=== PATIENT | male | born 1935 | race African-American/Black ===

== ENCOUNTER 2017-02-22 17:02 | Emergency (ER) | payer OTHER, MEDICARE ==
[~2017-02-22] VITALS: Ht 182.9 cm; Wt 81.6 kg
[2017-02-22] MEDS ORDERED: ONDANSETRON 4 MG/2 ML VIAL ONE (17:53)
[2017-02-22] MEDS ORDERED: NEOMY/BACITRA/POLYMYXIN B OINT UD PACKET TP ONE ×2 (19:00→19:14)
[2017-02-22] MEDS ORDERED: TDAP DIPH,PERTUSS,TET VAC/PF 0.5 ML DISP.SYRIN IM ONE ×2 (19:00→19:14)
--- NOTE | 2017-02-22 20:15 | NUR ---
Patient discharged to home in stable conditon with taking patient home. Written and verbal after care instructions given. Patient verbalizes understanding of instructions. Walked out of ER with steady gait.
[2017-02-22 20:17] VITALS: BP 125/85
== END 2017-02-22 20:18 | disposition home or self-care (01) ==
LOC: ER 17:04
DX: S61.301A Unspecified open wound of left index finger with damage to nail, initial encounter (principal); G20 Parkinson's disease; W27.8XXA Contact with other nonpowered hand tool, initial encounter; Y93.89 Activity, other specified; Y92.89 Other specified places as the place of occurrence of the external cause; Y99.8 Other external cause status
CPT/HCPCS: 90471; 90715; 99283; A4217; A4663; J7030; J2405

== ENCOUNTER 2018-08-01 08:22 | Inpatient (IN) | payer OTHER, MEDICARE ==
[~2018-08-01] VITALS: Ht 180.3 cm; Wt 79.9 kg
--- NOTE | 2018-08-01 08:37 | NUR ---
PT IS IN ROOM #1B. DR SEVILLA EVALUATED THE PT. CODE STROKE WAS CALLED BY DR SEVILLA. CODE STROKE PROTOKOL STARTED.
[2018-08-01] MEDS ORDERED: IV NORMAL SALINE 250 ML IV ONE (08:56)
[2018-08-01] MEDS ORDERED: diphenhydrAMINE 50 MG/1 ML VIAL ONE (08:56)
[2018-08-01] MEDS ORDERED: IOHEXOL 350 100 ML INFUS..BTL ONE (08:56)
[2018-08-01] MEDS ORDERED: SWABABLE VALVE TRANSFER SET EA MC ONE (08:56)
[2018-08-01] MEDS ORDERED: FINA5TAB11 PO (08:57)
[2018-08-01] MEDS ORDERED: CYAN100T3 PO (08:57)
[2018-08-01] MEDS ORDERED: TAMS-3 PO (08:57)
[2018-08-01] MEDS ORDERED: VALP250S3 PO ×2 (08:57)
[2018-08-01] MEDS ORDERED: CARI1.5C PO (08:57)
[2018-08-01] MEDS ORDERED: ASPI81TA44 PO (08:57)
[2018-08-01] MEDS ORDERED: diphenhydrAMINE 50 MG/1 ML VIAL IV ONE (09:00)
--- NOTE | 2018-08-01 09:12 | NUR ---
PT IS RESTING IN BED COMFORTABLY. PT'S AT THE BEDSIDE. CONTINUE TO MONITOR THE PT.
[2018-08-01 09:22] LABS: BASOPHILS % (AUTO) 0.7 % (0.0-2.0); EOSINOPHILS # (AUTO) 0.1 K/uL (0.0-0.7); EOSINOPHILS % (AUTO) 1.7 % (0.0-7.0); HEMATOCRIT 43.3 % (36.7-47.1); LYMPHOCYTES # (AUTO) 2.6 K/uL (20.0-40.0); LYMPHOCYTES % (AUTO) 61.5 % (20.5-51.5); MEAN CORPUSCULAR HEMOGLOBIN 34.2 uug (23.8-33.4); MEAN CORPUSCULAR HGB CONC 35 g/dL (32.5-36.3); MEAN CORPUSCULAR VOLUME 99.2 fL (73.0-96.2); MONOCYTES # (AUTO) 0.5 K/uL (2.0-10.0); MONOCYTES % (AUTO) 11.8 % (0.0-11.0); NEUTROPHILS % (AUTO) 24.3 % (38.5-71.5); PLATELET COUNT (AUTO) 162 K/uL (152-348); RED BLOOD CELL COUNT(AUTO) 4.37 MIL/uL (4.06-5.63); WHITE BLOOD COUNT (AUTO) 4.2 K/uL (3.6-10.2)
[2018-08-01 09:23] LABS: CARBON DIOXIDE 25 mmol/L (21-32); CHLORIDE 104 mmol/L (98-107); CREATININE 0.7 mg/dL (0.6-1.3); GLUCOSE 85 mg/dL (74-106); POTASSIUM 3.8 mmol/L (3.5-5.1); UREA NITROGEN, BLOOD 14 mg/dL (7-18)
[2018-08-01 09:28] LABS: CHOLESTEROL 132 mg/dL (<200); HDL CHOLESTEROL 57 mg/dL (40-60); TRIGLYCERIDES 40 MG/DL (30-150)
[2018-08-01] MEDS ORDERED: ASPIRIN 81 MG TAB.CHEW PO ONE (09:30)
[2018-08-01] MEDS ORDERED: ASPIRIN 300 MG RECTAL SUPP RC ONE ×2 (10:00→10:04)
--- NOTE | 2018-08-01 10:20 | NUR ---
CODE STROKE CLEARED. PT IS RESTING IN BED COMFORTABLY. CONTINUE TO MONITOR THE PT.
--- NOTE | 2018-08-01 11:09 | NUR ---
PT WAS TRANSFERED TO TELEMETRY ROOM #218. REPORT WAS GIVEN TO NUCLEAR PHYSICS PROFESSOR.
[2018-08-01 11:58] VITALS: BP 128/81
[2018-08-01] MEDS ORDERED: ACETAMINOPHEN 325 MG TABLET PO PRN (13:00)
[2018-08-01] MEDS ORDERED: Z GUARD REMEDY PASTE 57 GM TUBE TOP PRN (13:00)
[2018-08-01] MEDS ORDERED: ONDANSETRON 4 MG/2 ML VIAL IV PRN (13:00)
--- NOTE | 2018-08-01 14:45 | NUR ---
discharge note: Patient discharge to home, via private car with family, provided with discharge instructions and medication prescription , patient verbalized understanding. Patient on fair condition, no SOB noted , no acute distress noted, and no c/o pain noted. IV and ID band removed. Instruct patient to follow up with the PCP within 1 week. Belongings accounted for and questions and concerns addresses Addendum: 08/01/18 at 1623 by REECE LUCIANO RN DISCHARGE NOTE FOR ANOTHER PATIENT
[2018-08-01] MEDS: diphenhydrAMINE 50 MG/1 ML VIAL IV PRN ×2 (15:30→22:50)
[2018-08-01 15:43] VITALS: BP 128/73
[2018-08-01] MEDS: IV NS 1000 ML 1,000 ML IV PRN (15:44)
--- NOTE | 2018-08-01 16:03 | NUR ---
MRI APPROVED,TOLD THE PATIENT NURSE TO SHIP THE PATIENT [facility] TO [facility].
[2018-08-01] MEDS ORDERED: HALOPERIDOL DECANOATE 50 MG/1 ML AMPUL IM ONE (17:30)
[2018-08-01] MEDS ORDERED: HALOPERIDOL LACTATE 5 MG/1 ML VIAL IM ONE (17:45)
--- NOTE | 2018-08-01 18:08 | NUR ---
PATIENT WENT TO [facility] FOR MRI SCAN WITH IV ON THE RIGHT AC, INTACT AND PATENT. PATIENT ON FAIR CONDITION. NO SOB OR PAIN NOTED , PREMEDICATED WITH HALDOL 5MG ORDERED.
--- NOTE | 2018-08-01 19:50 | NUR ---
PATIENT CAME BACK FROM MRI. PATIENT IS RESTING IN BED, IN NO ACUTE DISTRESS. IS AT BEDSIDE. SAFETY MEASURES GIVEN. BED IS LOW AND LOCKED, CALL LIGHT IS WITHIN REACH. WILL CONTINUE TO MONITOR.
[2018-08-01 20:10] VITALS: BP 120/72
[2018-08-01] MEDS: AMOXIcillin 500 MG CAPSULE PO SCH (21:05)
[2018-08-01] MEDS: ENOXAPARIN SODIUM 40 MG/0.4 ML DISP.SYRIN SQ SCH (21:06)
[2018-08-02] VITALS: BP 133/71
[2018-08-02 04:00] VITALS: BP 127/70
[2018-08-02] MEDS: AMOXIcillin 500 MG CAPSULE PO SCH ×3 (05:18→21:13)
[2018-08-02] MEDS: diphenhydrAMINE 50 MG/1 ML VIAL IV PRN (05:23)
[2018-08-02 06:28] LABS: BASOPHILS % (AUTO) 0.4 % (0.0-2.0); EOSINOPHILS % (AUTO) 0.4 % (0.0-7.0); HEMOGLOBIN 15.8 g/dL (12.5-16.3); LYMPHOCYTES # (AUTO) 1.6 K/uL (20.0-40.0); LYMPHOCYTES % (AUTO) 45.7 % (20.5-51.5); MEAN CORPUSCULAR HEMOGLOBIN 33.9 uug (23.8-33.4); MEAN CORPUSCULAR HGB CONC 34 g/dL (32.5-36.3); MONOCYTES # (AUTO) 0.6 K/uL (2.0-10.0); MONOCYTES % (AUTO) 15.6 % (0.0-11.0); NEUTROPHILS # (AUTO) 1.4 K/uL (1.8-8.9); NEUTROPHILS % (AUTO) 37.9 % (38.5-71.5); PLATELET COUNT (AUTO) 171 K/uL (152-348); RED BLOOD CELL COUNT(AUTO) 4.65 MIL/uL (4.06-5.63); WHITE BLOOD COUNT (AUTO) 3.6 K/uL (3.6-10.2)
--- NOTE | 2018-08-02 06:30 | NUR ---
PATIENT SLEPT INTERMITTENTLY THROUGHOUT SHIFT. WAS TRYING TO GET OUT OF BED, HAD TO REORIENT PATIENT. NO SIGNS OF ACUTE DISTRESS NOTED. NO COMPLAINTS OF PAIN OR SOB. 1:1 SITTER AT BEDSIDE. BENADRYL WAS GIVEN AT 0523H AMOXICILLIN GIVEN ORDERED. SAFETY MEASURES GIVEN.
[2018-08-02 06:46] LABS: ALANINE AMINOTRANSFERASE 43 U/L (16-63); ALKALINE PHOSPHATASE 46 U/L (50-136); ASPARTATE AMINOTRANSFERASE 44 U/L (15-37); BILIRUBIN,TOTAL 0.8 mg/dL (0.2-1.0); CARBON DIOXIDE 21 mmol/L (21-32); CHLORIDE 103 mmol/L (98-107); CHOLESTEROL 154 mg/dL (<200); CREATININE 0.7 mg/dL (0.6-1.3); GLUCOSE 86 mg/dL (74-106); HDL CHOLESTEROL 65 mg/dL (40-60); MAGNESIUM 1.9 mg/dL (1.8-2.4); PHOSPHOROUS 2.8 mg/dL (2.5-4.9); POTASSIUM 3.7 mmol/L (3.5-5.1); TOTAL PROTEIN, SERUM 6.5 g/dL (6.4-8.2); TRIGLYCERIDES 65 MG/DL (30-150); UREA NITROGEN, BLOOD 10 mg/dL (7-18)
[2018-08-02 07:25] LABS: THYROID STIMULATING HORMONE 1.865 mIU/mL (0.358-3.740)
--- NOTE | 2018-08-02 07:30 | NUR ---
PATIENT LYING IN BED AWAKE, 1:1 SITTER AT BEDSIDE FOR SAFETY. PRECAUTIONS INITIATED. WILL CARRY OUT CARE PLAN THROUGHOUT THE DAY AND ASSESS FOR ANY AGITATION. BED IS IN LOW LOCKED POSITION WITH CALL LIGHT IN REACH. PATIENT HAS NS RUNNING AT 75ML THROUGH RIGHT AC.
[2018-08-02] MEDS ORDERED: ASPIRIN EC 81 MG TABLET.DR PO SCH (09:00)
[2018-08-02] MEDS: CYANOCOBALAMIN 100 MCG TABLET PO SCH (09:02)
[2018-08-02] MEDS: FINASTERIDE 5 MG TABLET PO SCH (09:02)
[2018-08-02] MEDS: ASPIRIN EC 81 MG TABLET.DR PO SCH (09:02)
[2018-08-02] MEDS: TAMSULOSIN HCL 0.4 MG CAP.SR.24H PO SCH (09:02)
[2018-08-02 09:26] LABS: LYMPHOCYTES % (MANUAL) 45 % (20-40); NEUTROPHILS % (MANUAL) 39 % (42-75)
[2018-08-02 09:27] LABS: MONOCYTES % (MANUAL) 16 % (2-10)
[2018-08-02] MEDS ORDERED: QUETIAPINE FUMARATE 25 MG TABLET PO PRN (10:15)
[2018-08-02] MEDS: VALPROIC ACID 250 MG/5 ML LIQUID UDC PO SCH (11:06)
[2018-08-02] MEDS: IV NS 1000 ML 1,000 ML IV PRN ×2 (12:28→20:20)
[2018-08-02 15:50] VITALS: BP 128/80
--- NOTE | 2018-08-02 15:57 | NUR ---
Discharge orders are in per Dio Paz. Discharge complete. Wristbands removed and IV access d/c. Patient is stable. Will be taken home via private car, Marcie is patient's clinical nurse educator.
[2018-08-02] MEDS ORDERED: VALPROIC ACID 250 MG CAPSULE PO ONE (16:45)
[2018-08-02] MEDS ORDERED: VALPROIC ACID 250 MG/5 ML LIQUID UDC PO ONE (17:00)
--- NOTE | 2018-08-02 17:00 | NUR ---
Assisted patient to the restroom, patient is ambulatory with assist for safety. Upon returning to bed patient did not want to lay down. Sat patient on the chair bedside with assistance from sitter. Seconds after patient sat down patient began having a seizure. Changed patient to a side lying position with assistance from the sitter. Seizure lasted an entire minute from [id number]. Rapid response called and placed patient on 2L of oxygen via nasal cannula. Patient's oxygenation at 100% and VSS. Blood sugar check done, results within appropriate range. Called MADDY Paz at 1614 to report occurrence. MADDY ordered a one time dose of 500mg Valproic Acid PO. Did a bedside swallow test with spoon and patient had no difficulty swallowing. Gave medication PO successfully with at bedside. After having a conversation with Marcie to inform her about the occurrence, of which she was not present, she informed me of background information. Patient has been taking Valproic Acid since November of last year, prescribed by DR. Guicho Terry (contact number [phone]). Dr. Terry had previously told patient's that if the patient ever went over 24 hours without receiving this medication he would be at risk of seizure. Since then, patient had been taking medication as prescribed with no incidence of seizure. When patient was admitted on Tuesday his last dose was that night and medication was held per MADDY Paz, labs/levels were being drawn. Marcie contacted Dr. Guicho Terry and gave him MADDY Paz's number, and Brandi was not contacted. Marcie spoke to MADDY Paz and was made aware of plan that will continue to be carried out. Patient is to stay the night, Brandi will put in orders. Will continue to monitor patient and initiate seizure/safety precautions.
--- NOTE | 2018-08-02 18:56 | NUR ---
Shift report communicated to night time babysitter nurse. Patient is lying in bed with at bedside, which will be staying overnight and has signed the extended stay agreement. Patient is lying in bed with HOB elevated, bed is in low locked position and call light within reach. Patient is on oxygen 2L via nasal cannula, VSS no distress noted. Patient's mental status is back to baseline. Safety/seizure precautions to be continued.
[2018-08-02 20:00] VITALS: BP 133/81
[2018-08-02] MEDS: ENOXAPARIN SODIUM 40 MG/0.4 ML DISP.SYRIN SQ SCH (20:54)
[2018-08-02] MEDS ORDERED: VALPROIC ACID 250 MG/5 ML LIQUID UDC PO SCH (21:00)
--- NOTE | 2018-08-03 04:39 | NUR ---
awake upon rounds. at bedside. admitted for a change in mental status. able to communicate in simple sentences. follow commands.needs attended. fall precautions maintained. On continous O2 @ 2L via nasal cannula. pulse Ox 96% tolerated po meds well. voiding in urinal. attended to needs. VSS. kept comfortable. 1:1 sitter maintained. no signs of restlessness or agitation. calm and quiet. slept most of the shift. IVF's infusing well. possible discharge today.
--- NOTE | 2018-08-03 07:00 | NUR ---
Patient is resting in bed, at bedside. A/O 1, able to communicate in simple sentences. follow commands. On continuos O2 @ 2L via nasal cannula. Safety reinforced, cont care plan.
[2018-08-03] MEDS: ASPIRIN EC 81 MG TABLET.DR PO SCH (08:22)
[2018-08-03] MEDS: CYANOCOBALAMIN 100 MCG TABLET PO SCH (08:22)
[2018-08-03] MEDS: TAMSULOSIN HCL 0.4 MG CAP.SR.24H PO SCH (08:22)
[2018-08-03] MEDS: FINASTERIDE 5 MG TABLET PO SCH (08:22)
[2018-08-03] MEDS: VALPROIC ACID 250 MG/5 ML LIQUID UDC PO SCH (09:44)
[2018-08-03] MEDS: IV NS 1000 ML 1,000 ML IV PRN (09:57)
[2018-08-03 12:00] VITALS: BP_SYST 84
--- NOTE | 2018-08-03 14:00 | NUR ---
Discharged orders are received and paperwork is done and sighed, can take him home only after 1700 bc she left for a meeting. Rehabilitation Coordinator notified and Ok with it. Cont monitoring
[2018-08-03 16:15] VITALS: BP 117/78
--- NOTE | 2018-08-03 18:14 | NUR ---
PATIENT IS GOING HOME WITH HIS , NO DISTRESS, RA AT 95%, STILL ORIENTED ONLY TO SELF. NO SEIZURES THIS SHIFT. SAFETY MAINTAINED, WENT DOWN STAIRS WITH TERESA BY WHEELCHAIR.
== END 2018-08-03 18:15 | disposition home or self-care (01) | DRG 92 ==
LOC: ER 08:24 → TELE 10:43 → MED 08-02 21:54
PROVIDERS: ADMIT Nurse Practitioner Acute Care; ATTEND Nurse Practitioner Acute Care
DX: G92 Toxic encephalopathy (principal); I42.9 Cardiomyopathy, unspecified; T50.995A Adverse effect of other drugs, medicaments and biological substances, initial encounter; Y92.019 Unspecified place in single-family (private) house as the place of occurrence of the external cause; F31.9 Bipolar disorder, unspecified; J44.9 Chronic obstructive pulmonary disease, unspecified; N40.0 Benign prostatic hyperplasia without lower urinary tract symptoms; Z96.659 Presence of unspecified artificial knee joint; I44.7 Left bundle-branch block, unspecified; G20 Parkinson's disease; R56.9 Unspecified convulsions; E88.09 Other disorders of plasma-protein metabolism, not elsewhere classified; I44.0 Atrioventricular block, first degree; Z79.82 Long term (current) use of aspirin
CPT/HCPCS: 36415; 70030-TC; 70496; 70551; 71045; 80164; 83735; 84100; 84443; 85025; 85730; 86850; 86900; 86901; 92523; 92526; 92610; 93005; 93307; 93880; 97110; 97116; 97165; 97530; A4663; G0378; J1200; J1630; J1650; J7030; J7050; Q9967